=== PATIENT | male | born 1965 | race Caucasian/White ===

== ENCOUNTER 2017-12-09 01:51 | Emergency (ER) | payer MEDICAID ==
[2017-12-09] MEDS ORDERED: ADENOSINE 6 ML (02:21)
[2017-12-09] MEDS: ADENOSINE 6 MG INJ IV ×2 (02:40→02:43)
[2017-12-09] MEDS: SOD CHLORIDE 0.9% 1,000 ML IV (02:44)
[2017-12-09 03:19] LABS: ADD MAN DIFF? NO
[2017-12-09 03:21] LABS: WHITE BLOOD COUNT 3.8 10^3/ul (4.8-10.8)
[2017-12-09 03:21] LABS: ABNORMAL IP MESSAGE 1; BASOPHILS % 0.5 % (0.0-2.0); EOSINOPHILS # 0.1 10^3/ul (0.0-0.5); EOSINOPHILS % 1.6 % (0.0-7.0); HEMATOCRIT 36.1 % (42.0-52.0); HEMOGLOBIN 12.6 g/dl (14.0-18.0); LYMPHOCYTES # 1.1 10^3/ul (0.8-2.9); MEAN CORPUSCULAR HEMOGLOBIN 32.2 pg (29.0-33.0); MEAN CORPUSCULAR HGB CONC 34.9 g/dl (32.0-37.0); MEAN CORPUSCULAR VOLUME 92.3 fl (82.0-101.0); MEAN PLATELET VOLUME 11.7 fl (7.4-10.4); MONOCYTE # 0.4 10^3/ul (0.3-0.9); MONOCYTES % 9.3 % (0.0-11.0); NEUTROPHIL # 2.3 10^3/ul (1.6-7.5); NEUTROPHILS % 60.1 % (39.0-77.0); PLATELET COUNT 60 10^3/UL (140-415); POSITIVE DIFF @See below; RED BLOOD COUNT 3.91 10^6/ul (4.70-6.10); RED CELL DISTRIBUTION WIDTH 15.7 % (11.5-14.5)
[2017-12-09 03:27] LABS: INR 1.27; PROTIME 16.1 Sec (11.9-14.9); PT RATIO 1.3
[2017-12-09 03:33] LABS: AMMONIA 48 umol/l (9-30)
[2017-12-09 03:37] LABS: ALANINE AMINOTRANSFERASE 37 IU/L (13-69); ALBUMIN 3.6 g/dl (3.3-4.9); ALBUMIN/GLOBULIN RATIO 0.97; ALKALINE PHOSPHATASE 170 IU/L (42-121); ANION GAP 19 (8-16); ASPARTATE AMINO TRANSFERASE 39 IU/L (15-46); BILIRUBIN,INDIRECT 0.4 mg/dl (0-1.1); BILIRUBIN,TOTAL 0.4 mg/dl (0.2-1.3); BLOOD UREA NITROGEN 18 mg/dl (7-20); CALCIUM 8.7 mg/dl (8.4-10.2); CARBON DIOXIDE 20 mmol/L (21-31); CHLORIDE 116 mmol/L (97-110); CREATININE 1.17 mg/dl (0.61-1.24); GLUCOSE 344 mg/dl (70-220); SODIUM 151 mmol/L (135-144); TOTAL PROTEIN 7.3 g/dl (6.1-8.1)
[2017-12-09 03:42] LABS: ACETAMINOPHEN < 10.0 ug/ml (10.0-30.0); SALICYLATE < 1.0 mg/dl (5.0-30.0)
[2017-12-09 03:56] LABS: TROPONIN-I < 0.012 ng/ml (0.000-0.120)
[2017-12-09] MEDS: LORAZEPAM 2 MG INJ IV (04:21)
[2017-12-09] MEDS ORDERED: ACETAMINOPHEN 325 MG TAB PO ×2 (04:30→05:00)
[2017-12-09] MEDS ORDERED: ONDANSETRON 4 MG INJ IV (04:30)
[2017-12-09 04:32] LABS: FREE THYROXINE INDEX (Calc) 3.15 ug/ml (0.65-3.89); T3 UPTAKE 39.9 % (23.5-40.5); T4 (THYROXINE) 7.9 ug/dl (5.5-11.0)
[2017-12-09 04:41] LABS: ADD UMIC YES; UR ASCORBIC ACID NEGATIVE (NEGATIVE); UR BILIRUBIN (Dip) NEGATIVE (NEGATIVE); UR BLOOD (Dip) 2+ mg/dL (NEGATIVE); UR CLARITY CLEAR (CLEAR); UR COLOR YELLOW (YELLOW); UR GLUCOSE (Dip) 3+ mg/dL (NEGATIVE); UR KETONES (Dip) NEGATIVE (NEGATIVE); UR LEUKOCYTE ESTERASE (Dip) NEGATIVE Leu/ul (NEGATIVE); UR NITRITE (Dip) NEGATIVE (NEGATIVE); UR RBC 3 /HPF (0-5); UR SPECIFIC GRAVITY (Dip) 1.009 (1.003-1.030); UR TOTAL PROTEIN (Dip) 1+ mg/dl (NEGATIVE); UR UROBILINOGEN (Dip) NEGATIVE (NEGATIVE); UR WBC 2 /HPF (0-5)
[2017-12-09 05:00] LABS: AMPHETAMINE/METHAMPHETAMINE NEGATIVE (NEGATIVE); BARBITURATES NEGATIVE (NEGATIVE); BENZODIAZEPINES NEGATIVE (NEGATIVE); COCAINE NEGATIVE (NEGATIVE); OPIATES NEGATIVE (NEGATIVE)
[2017-12-09] MEDS: LACTULOSE 30ML CUP PO (05:00)
[2017-12-09] MEDS: LACTULOSE ENEMA 1,000 ML BTL PR (05:00)
[2017-12-09] MEDS ORDERED: LORAZEPAM 2 MG INJ IV (05:00)
[2017-12-09] MEDS ORDERED: NACL 0.9% 3 ML SYG IV (05:00)
[2017-12-09 05:01] LABS: CANNABINOIDS NEGATIVE (NEGATIVE)
[2017-12-09 06:19] LABS: MAGNESIUM 2.1 mg/dl (1.7-2.5)
[2017-12-09 06:54] LABS: THYROID STIMULATING HORMONE 0.972 MIU/L (0.465-4.680)
[2017-12-09] MEDS ORDERED: morphine 4 MG/ML VIAL IV (07:08)
[2017-12-09] MEDS: ONDANSETRON 4 MG INJ IV (07:38)
[2017-12-09] MEDS: HYDROmorphONE 1 MG/5 ML IV SYRINGE IV (07:38)
[2017-12-09 07:58] LABS: HEMOGLOBIN A1C 6.6 % (0-5.9)
[2017-12-09] MEDS ORDERED: oxyCODONE (CR) 15 MG TAB [oxyCONTIN] PO (08:30)
[2017-12-09] MEDS ORDERED: MULTIVITAMINS 10 ML, THIAMINE 100 MG, FOLIC ACID 1 MG in SOD CHLORIDE 0.9% 1,000 ML IVPB (09:00)
[2017-12-09 09:03] LABS: ADD MAN DIFF? NO
[2017-12-09 09:14] LABS: ABNORMAL IP MESSAGE 1; BASOPHILS % 0.3 % (0.0-2.0); EOSINOPHILS # 0.1 10^3/ul (0.0-0.5); EOSINOPHILS % 1.7 % (0.0-7.0); HEMATOCRIT 37.2 % (42.0-52.0); HEMOGLOBIN 12.5 g/dl (14.0-18.0); LYMPHOCYTES # 0.7 10^3/ul (0.8-2.9); LYMPHOCYTES % 23.5 % (15.0-51.0); MEAN CORPUSCULAR HEMOGLOBIN 30.9 pg (29.0-33.0); MEAN CORPUSCULAR HGB CONC 33.6 g/dl (32.0-37.0); MEAN CORPUSCULAR VOLUME 91.9 fl (82.0-101.0); MEAN PLATELET VOLUME 11.1 fl (7.4-10.4); MONOCYTE # 0.3 10^3/ul (0.3-0.9); MONOCYTES % 8.4 % (0.0-11.0); NEUTROPHILS % 65.4 % (39.0-77.0); POSITIVE DIFF @See below; RED BLOOD COUNT 4.05 10^6/ul (4.70-6.10); RED CELL DISTRIBUTION WIDTH 15.8 % (11.5-14.5)
[2017-12-09 09:22] LABS: PLATELET COUNT 54 10^3/UL (140-415)
[2017-12-09 09:30] LABS: CHOLESTEROL 108 mg/dl (100-200)
[2017-12-09 09:30] LABS: CHOL/HDL RATIO 3.6 RATIO; HDL CHOLESTEROL 30 mg/dl (28-71); LDL CHOLESTEROL,CALCULATED 47 mg/dl; TRIGLYCERIDES 154 mg/dl (0-149)
[2017-12-09 10:05] LABS: ALANINE AMINOTRANSFERASE 45 IU/L (13-69); ALBUMIN 3.4 g/dl (3.3-4.9); ALKALINE PHOSPHATASE 119 IU/L (42-121); ANION GAP 14 (8-16); ASPARTATE AMINO TRANSFERASE 34 IU/L (15-46); BILIRUBIN,INDIRECT 0.5 mg/dl (0-1.1); BILIRUBIN,TOTAL 0.5 mg/dl (0.2-1.3); BLOOD UREA NITROGEN 16 mg/dl (7-20); CALCIUM 8.4 mg/dl (8.4-10.2); CARBON DIOXIDE 23 mmol/L (21-31); CHLORIDE 116 mmol/L (97-110); CREATININE 1.06 mg/dl (0.61-1.24); GLUCOSE 209 mg/dl (70-220); POTASSIUM 4.1 mmol/L (3.5-5.1); SODIUM 149 mmol/L (135-144); TOTAL PROTEIN 6.8 g/dl (6.1-8.1)
== END 2017-12-09 12:08 | disposition left against medical advice (07) ==
LOC: E/R 01:51
DX: G93.40 Encephalopathy, unspecified (principal); R74.8 Abnormal levels of other serum enzymes; E87.0 Hyperosmolality and hypernatremia; E87.2 Acidosis; R73.9 Hyperglycemia, unspecified; F10.121 Alcohol abuse with intoxication delirium; K76.9 Liver disease, unspecified; D72.810 Lymphocytopenia; D64.9 Anemia, unspecified; D69.6 Thrombocytopenia, unspecified; I47.1 Supraventricular tachycardia; I51.7 Cardiomegaly; R55 Syncope and collapse; I10 Essential (primary) hypertension; Z85.528 Personal history of other malignant neoplasm of kidney
CPT/HCPCS: 36415; 70450; 71045; 80053; 80061; 80307; 81001; 82140; 83036; 83735; 84436; 84443; 84479; 84484; 85025; 85610; 93005; 96374; 96375; 99291-25

== ENCOUNTER 2018-06-18 17:16 | Emergency (ER) | payer MEDICAID ==
[2018-06-18 17:39] LABS: ADD MAN DIFF? NO
[2018-06-18 17:46] LABS: WHITE BLOOD COUNT 3.8 10^3/ul (4.8-10.8)
[2018-06-18 17:46] LABS: ABNORMAL IP MESSAGE 1; BASOPHILS % 0.5 % (0.0-2.0); EOSINOPHILS # 0.1 10^3/ul (0.0-0.5); EOSINOPHILS % 2.1 % (0.0-7.0); HEMATOCRIT 37.3 % (42.0-52.0); HEMOGLOBIN 12.8 g/dl (14.0-18.0); LYMPHOCYTES # 0.8 10^3/ul (0.8-2.9); LYMPHOCYTES % 21.6 % (15.0-51.0); MEAN CORPUSCULAR HEMOGLOBIN 30.5 pg (29.0-33.0); MEAN CORPUSCULAR HGB CONC 34.3 g/dl (32.0-37.0); MEAN PLATELET VOLUME 10.5 fl (7.4-10.4); MONOCYTE # 0.3 10^3/ul (0.3-0.9); MONOCYTES % 8.4 % (0.0-11.0); NEUTROPHIL # 2.5 10^3/ul (1.6-7.5); NEUTROPHILS % 66.6 % (39.0-77.0); PLATELET COUNT 66 10^3/UL (140-415); POSITIVE DIFF @See below; RED BLOOD COUNT 4.19 10^6/ul (4.70-6.10); RED CELL DISTRIBUTION WIDTH 15.3 % (11.5-14.5)
[2018-06-18 17:47] LABS: MODE ROOM AIR; MetHgb Venous 0.3 %; Sample Type Blood venous; Site VENOUS LINE; Venous Fraction OxyHgb 67.6 %; Venous Oxygen Sat 68.5 mmHG (55.0-75.0)
[2018-06-18 18:03] LABS: ANION GAP 11 (5-13); BLOOD UREA NITROGEN 23 mg/dl (7-20); CALCIUM 7.9 mg/dl (8.4-10.2); CARBON DIOXIDE 23 mmol/L (21-31); CHLORIDE 102 mmol/L (97-110); CREATININE 1.23 mg/dl (0.61-1.24); Estimated GFR > 60 mL/min (>60); MAGNESIUM 2.2 mg/dl (1.7-2.5); PHOSPHORUS 2.8 mg/dl (2.5-4.9); POTASSIUM 4.5 mmol/L (3.5-5.1); SODIUM 136 mmol/L (135-144)
[2018-06-18 18:04] LABS: ADD UMIC YES; UR ASCORBIC ACID NEGATIVE (NEGATIVE); UR BILIRUBIN (Dip) NEGATIVE (NEGATIVE); UR BLOOD (Dip) 1+ mg/dL (NEGATIVE); UR CLARITY CLEAR (CLEAR); UR COLOR STRAW (YELLOW); UR GLUCOSE (Dip) 3+ mg/dL (NEGATIVE); UR KETONES (Dip) NEGATIVE (NEGATIVE); UR LEUKOCYTE ESTERASE (Dip) NEGATIVE Leu/ul (NEGATIVE); UR NITRITE (Dip) NEGATIVE (NEGATIVE); UR RBC 1 /HPF (0-5); UR SPECIFIC GRAVITY (Dip) 1.022 (1.003-1.030); UR TOTAL PROTEIN (Dip) NEGATIVE (NEGATIVE); UR UROBILINOGEN (Dip) NEGATIVE (NEGATIVE); UR WBC 0 /HPF (0-5)
[2018-06-18 18:04] LABS: AMMONIA 72 umol/l (9-30)
[2018-06-18] MEDS: HYDROCODONE/APAP (10/325) TAB PO ×2 (18:06→18:35)
[2018-06-18 18:15] LABS: GLUCOSE 570 mg/dl (70-220)
[2018-06-18] MEDS: morphine 4 MG/ML VIAL IV (18:19)
[2018-06-18] MEDS: SOD CHLORIDE 0.9% 1,000 ML IV (18:58)
[2018-06-18] MEDS: INSULIN LISPRO 100 UNIT/ML VIAL SC (19:00)
[2018-06-18] MEDS ORDERED: ACETAMINOPHEN 325 MG TAB PO (19:00)
[2018-06-18] MEDS ORDERED: GLUCAGON 1 MG INJ IM (19:00)
[2018-06-18] MEDS ORDERED: GLUCOSE GEL 15 GRAM TUBE BUCCAL (19:00)
[2018-06-18] MEDS ORDERED: DEXTROSE 50% 50 ML SYRINGE IV ×2 (19:00)
[2018-06-18] MEDS ORDERED: ONDANSETRON 4 MG INJ IV (19:00)
[2018-06-18] MEDS ORDERED: GLUCOSE GEL 15 GRAM TUBE PO ×2 (19:00)
[2018-06-18] MEDS: LACTULOSE 30ML CUP PO (19:01)
[2018-06-18] MEDS ORDERED: INSULIN ASPART [NOVOLOG] 3 ML PEN SC (21:00)
[2018-06-19] MEDS ORDERED: ACCU-CHEK XX (02:00)
== END 2018-06-18 20:38 | disposition left against medical advice (07) ==
LOC: E/R 20:38
DX: E72.20 Disorder of urea cycle metabolism, unspecified (principal); E11.65 Type 2 diabetes mellitus with hyperglycemia; Z85.528 Personal history of other malignant neoplasm of kidney
CPT/HCPCS: 36415; 80048; 81001; 82140; 82803; 82962; 83735; 84100; 85025; 96372; 96374; 99284-25